=== PATIENT | male | born 1965 | race Two or more races ===

== ENCOUNTER 2016-07-25 08:20 | Emergency (ER) | payer BC ==
[~2016-07-25] VITALS: Ht 157.5 cm; Wt 81.8 kg
[2016-07-25] MEDS ORDERED: ONDANSETRON ODT 4 MG ONE (09:17)
[2016-07-25] MEDS ORDERED: MECLIZINE CHEWABLE 25 MG TAB ONE (09:18)
[2016-07-25 09:21] LABS: HEMOGLOBIN 15.3 g/dL (13.7-18.0)
[2016-07-25] MEDS ORDERED: MECLIZINE CHEWABLE 25 MG TAB PO ONE (09:30)
[2016-07-25] MEDS ORDERED: ONDANSETRON ODT 4 MG PO ONE (09:30)
[2016-07-25 09:32] LABS: ASPARTATE AMINO TRANSFERASE 27 U/L (15-37); BLOOD UREA NITROGEN 12 mg/dL (7-18)
[2016-07-25 11:10] VITALS: BP 129/63
[2016-07-25] MEDS ORDERED: MECL25TA4 PO (11:13)
== END 2016-07-25 12:22 | disposition home or self-care (01) ==
LOC: ED 09:08
DX: H81.10 Benign paroxysmal vertigo, unspecified ear (principal)
CPT/HCPCS: 36415; 70450; 80053; 85025; 93005; 99285; Q0162; 96374